=== PATIENT | female | born 1935 | race Two or more races ===

== ENCOUNTER 2016-10-25 13:16 | Emergency (ER) | payer OTHER ==
[2016-10-25 13:30] VITALS: BMI 23.4
[2016-10-25] MEDS ORDERED: ALBUTEROL SO4 2.5/IPRATROPIUM 0.5 INH SOL 3 ML VIAL.NEB. NEB ONE ×2 (13:33→14:00)
[2016-10-25 14:27] LABS: BASOPHIL 0.7 % (0-2.0); EOSINOPHIL 3.2 % (0-4.5); MCH 24.6 pg (25.7-33.7); MCHC 32.7 g/dl (32.0-36.0); MEAN CELL VOLUME 75.2 fl (80-96); MEAN PLT VOLUME 8.7 fl (7.5-11.1); NEUTROPHILS 74.6 % (42.8-82.8); PLATELET COUNT 313 K/MM3 (134-434); RDW 15.1 % (11.6-15.6); WHITE BLOOD COUNT 8.7 K/mm3 (4.0-10.8)
--- NOTE | 2016-10-25 14:43 | PDOC ---
History of Present Illness - General Chief Complaint: Shortness of Breath Stated Complaint: SOB SINCE LAST NIGHT Time Seen by Provider: 10/25/16 13:19 History Source: Patient, Family Exam Limitations: No Limitations - History of Present Illness Initial Comments: 10/25/16 14:37 81-year-old female with history of hypertension, diabetes, high cholesterol presents with shortness of breath since yesterday in the setting of URI. Patient is accompanied by her children, both in the medical profession, who report that their family has been suffering from a viral URI and the patient developed a typical symptoms beginning about 4 days ago of nasal congestion with dry throat, over the last 2 days progressed to dry cough but over the last 24 hours has had increasing chest congestion with wheezing and shortness of breath. Patient reports becoming dyspneic when climbing stairs, said she had to sleep sitting up for a few hours last night, and has had audible wheezing in her lungs. She denies any productive cough, denies any fevers or chills, denies any chest pain or pressure. Baseline bilateral leg swelling since starting amlodipine, denies any change or worsening. Unclear last echo or stress test, denies any exercise limitations preceding this upper respiratory infection. Patient states she had a similar syndrome in the past about 5 years ago, was treated with nebulizers and azithromycin and her symptoms improved. Past History - Past Medical History Allergies/Adverse Reactions: Allergies Allergy/AdvReac Type Severity Reaction Status Date / Time No Known Allergies Allergy Verified 10/25/16 13:17 Home Medications: Ambulatory Orders Albuterol Sulfate Inhaler - [Ventolin Hfa Inhaler -] 1 - 2 inh PO Q4H #1 inhaler 10/25/16 Amlodipine Besylate 10 mg PO DAILY 10/25/16 Atorvastatin Ca [Lipitor] 10 mg PO HS 10/25/16 Azithromycin [Zithromax 250mg Tablets -] 250 mg PO UTDICT #6 tab 10/25/16 Gabapentin 300 mg PO TID 10/25/16 Metformin HCl 500 mg PO BID 10/25/16 Methylprednisolone [Medrol Dose Efra] 4 mg PO ASDIR #21 tablet 10/25/16 Nebivolol HCl [Bystolic] 10 mg PO DAILY 10/25/16 Valsartan 320 mg PO DAILY 10/25/16 Diabetes: Yes HTN: Yes Hypercholesterolemia: Yes - Psycho/Social/Smoking Cessation Hx Anxiety: No Suicidal Ideation: No Smoking History: Never smoked Information on smoking cessation initiated: No Hx Alcohol Use: No Drug/Substance Use Hx: No Substance Use Type: None Review of Systems - Review of Systems Constitutional: No: Chills, Fever HEENTM: Yes: Nose Congestion, Throat Pain. No: Throat Swelling Respiratory: Yes: Cough, Shortness of Breath Cardiac (ROS): Yes: Edema. No: Chest Pain, Lightheadedness ABD/GI: No: Constipated, Diarrhea, Nausea, Vomiting Musculoskeletal: No: Joint Pain All Other Systems: Reviewed and Negative *Physical Exam - Vital Signs Last Vital Signs Temp Pulse Resp BP Pulse Ox 97.9 F 74 18 165/59 96 10/25/16 13:17 10/25/16 13:17 10/25/16 13:17 10/25/16 13:17 10/25/16 13:17 - Physical Exam Comments: 10/25/16 14:40 afebrile. Heart rate and respiratory rate are within normal limits, O2 sat 96% on room air. GENERAL: The patient is awake, alert, and fully oriented, in no acute distress. Speaking full sentences, no audible wheezing at the bedside. HEAD: Normal with no signs of trauma. EYES: PERRL, EOMI, sclera anicteric, conjunctiva clear with no pallor. ENT: oropharynx clear without exudates. Moist mucous membranes. Uvula midline, only slightly erythematous. NECK: Normal range of motion, supple without lymphadenopathy, JVD, or masses. LUNGS: Breath sounds equal, clear to auscultation bilaterally. No wheeze/ crackles to ausculation. No prolonged expiration or focally decreased breath sounds. HEART: Regular rate and rhythm, normal S1 and S2 with 2 out of 6 right upper sternal border systolic ejection murmur. No rub. ABDOMEN: Soft/nontender/nondistended. BS wnl. No guarding or rebound. No palpable masses. No hepatosplenomegaly. EXTREMITIES: Normal range of motion, 1+ pitting edema b/l. no calf ttp. 2+ distal pulses. No cords, erythema, or tenderness. NEUROLOGICAL: Cranial nerves II through XII grossly intact. Normal speech, normal gait. PSYCH: Normal mood, normal affect. SKIN: Warm, Dry, no rashes or lesions noted. Heart Score/ECG Review - History History: Slightly suspicious - Electrocardiogram EKG: Normal - Age Age: >/= 65 - Risk Factors Based on the list above the patient has:: >/=3 risk factors or Hx atherosclerotic disease - Troponin Troponin: </= normal limit - Score Heart Score - Total: 4 #1 ECG reviewed & interpreted by me at: 13:54 General ECG Interpretation: Sinus Rhythm, Normal Rate (66), Normal Intervals ( qtc 421), No acute ischemic changes ED Treatment Course - LABORATORY CBC & Chemistry Diagram: 10/25/16 14:00 10/25/16 14:00 - ADDITIONAL ORDERS Additional order review: Laboratory Results 10/25/16 14:00 Magnesium Cancelled 10/25/16 14:00 RBC 4.09 MCV 75.2 L MCHC 32.7 RDW 15.1 D MPV 8.7 D Neutrophils % 74.6 Lymphocytes % 13.3 Monocytes % 8.2 Eosinophils % 3.2 Basophils % 0.7 - RADIOLOGY Radiology Studies Ordered: Category Date Time Status CHEST PA & LAT [RAD] Stat Radiology 10/25/16 13:35 Completed - Medications Given in the ED: ED Medications Discontinued Medications Generic Name Dose Route Start Last Admin Trade Name Freq PRN Reason Stop Dose Admin Albuterol/Ipratropium 1 amp 10/25/16 13:33 10/25/16 14:00 Duoneb - NEB 10/25/16 13:34 1 amp ONCE ONE Administration Medical Decision Making - Medical Decision Making 10/25/16 14:42 81-year-old female with hypertension, diabetes, high cholesterol presents with shortness of breath/wheezing in the setting of upper respiratory infection over the last few days. Patient generally well-appearing with good vital signs, there is no audible wheezing or crackles on exam. Question progression to bronchitis, rule out pneumonia. Patient does have risk factors for ACS/CHF, but never had chest pain or exertional dyspnea preceding this illness. Check labs including troponin and BNP EKG, chest x-ray Trial of nebulizer Reassess 10/25/16 14:57 CXR notes large heart (pt states had echo in past documenting same) but no lung pathology or pneumonia. Improved after neb but still with some subjective wheeze , O2 sat 94-96% on room air. Awaiting chem/trop/bnp, ekg normal. Discussed ddx of bronchitis v. CHF with family, will reassess. 10/25/16 15:43 well appearing with improving sxs, seated in chair without respiratory distress. Trop/BNP still pending. If wnl, plan for d/c on abx and steroids for bronchitis and prompt PMD f/u. 10/25/16 15:55 trop negative. pt seated in chair, very much wants to go home. Discussed with family of clinicians choice of obs v. d/c. plan is for d/c on medrol dose pack and zpack, close monitoring of sxs/respiratory status, and prompt f/u with PMD or strict return criteria if red flags develop. 10/25/16 16:04 pharmacy closing, will give first dose of azithro and prednisone here. *DC/Admit/Observation/Transfer Diagnosis at time of Disposition: Viral upper respiratory infection, Shortness of breath - Discharge Dispostion Disposition: HOME Condition at time of disposition: Improved - Prescriptions Prescriptions: Methylprednisolone [Medrol Dose Efra] 4 mg PO ASDIR #21 tablet Albuterol Sulfate Inhaler - [Ventolin Hfa Inhaler -] 1 - 2 inh PO Q4H #1 inhaler Azithromycin [Zithromax 250mg Tablets -] 250 mg PO UTDICT #6 tab - Patient Instructions Printed Discharge Instructions: DI for Acute Bronchitis Additional Instructions: Activity as tolerated. Stay hydrated. Blood tests, an EKG, and a chest x-ray showed a large heart but no evidence of pneumonia or acute heart injury. Your symptoms are likely due to a bronchitis from a viral infection. Take azithromycin for possible atypical pneumonia ( first dose given in the ER, so take only 250mg daily for 4 days), take Medrol Dosepak as prescribed as steroid (closely monitor your sugar levels during this time), and use albuterol inhaler as needed. Continue your medications as previously prescribed by your physician. You should follow up with your primary doctor at [facility] as soon as possible (TOMORROW or WEDNESDAY) regarding today's emergency department visit. Return to the emergency department for any new or concerning symptoms, particularly any worsening shortness of breath or chest pain, any fever/chills or weakness, or any confusion.
[2016-10-25 15:17] LABS: CPK(DFH) 109 IU/L (26-140)
[2016-10-25 15:18] LABS: ALBUMIN 3.4 g/dl (3.5-5.0); ALK PHOS 150 U/L (32-92); ANION GAP 8 (8-16); BILIRUBIN,TOTAL 0.4 mg/dl (0.2-1.0); CALCIUM 9.5 mg/dl (8.4-10.2); CO2 29 mmol/L (22-28); CREATININE 0.6 mg/dl (0.6-1.3); GLUCOSE,RANDOM 197 mg/dl (74-106); MAGNESIUM 1.9 mg/dL (1.8-2.4); SGOT/AST 33 U/L (10-42); SGPT/ALT 28 U/L (10-40); TOT PROT 6.6 g/dl (6.4-8.3)
[2016-10-25 15:46] LABS: TROPONIN I (DFP) < 0.03 ng/ml (0.03-0.50)
[2016-10-25] MEDS ORDERED: AZITHROMYCIN 250 MG TABLET (FP) PO ONE (16:03)
[2016-10-25] MEDS ORDERED: predniSONE 20 MG TABLET (UD) PO ONE (16:03)
[2016-10-25] MEDS ORDERED: predniSONE 20 MG TABLET (UD) ONE (16:10)
[2016-10-25] MEDS ORDERED: AZITHROMYCIN 250 MG TABLET (FP) ONE (16:10)
[2016-10-25 16:33] VITALS: BP 146/76; PULSE 76; TEMP 98.3
--- NOTE | 2016-10-26 08:26 | EKG ---
Test Reason : Blood Pressure : / mmHG Vent. Rate : 066 BPM Atrial Rate : 066 BPM P-R Int : 126 ms QRS Dur : 072 ms QT Int : 402 ms P-R-T Axes : 033 012 015 degrees QTc Int : 421 ms NORMAL SINUS RHYTHM NORMAL ECG NO PREVIOUS ECGS AVAILABLE Confirmed by CAL BARRIENTOS MD ([id number]) on 10/26/2016 8:26:22 AM Referred By: DEVANG Confirmed By:CAL BARRIENTOS MD
== END 2016-10-25 16:33 | disposition home or self-care (01) ==
LOC: FER 13:16
PROC: 3E0F7GC Introduction of Other Therapeutic Substance into Respiratory Tract, Via Natural or Artificial Opening (ICD-10-PCS; principal; 2016-10-25)
DX: J06.9 Acute upper respiratory infection, unspecified (principal); R06.02 Shortness of breath
CPT/HCPCS: 36415; 71020-TC; 80053; 82550; 83735; 83880; 84484; 85025; 93005; 99283-25

== ENCOUNTER 2021-12-07 20:28 | Emergency (ER) | payer OTHER ==
[2021-12-07 21:05] VITALS: RESP 18
[2021-12-07] MEDS ORDERED: NOREPINEPHRINE BITARTRATE 4 MG/4 ML ML IV ONE (21:28)
[2021-12-07] MEDS ORDERED: NOREPINEPHRINE BITARTRATE 16,000 MCG in SODIUM CHLORIDE 484 ML IV SCH (21:30)
[2021-12-07 21:42] LABS: HEMATOCRIT 27.9 % (32.4-45.2); MCH 29.3 pg (25.7-33.7); MCHC 32.4 g/dl (32.0-36.0); MEAN CELL VOLUME 90.4 fl (80-96); MEAN PLT VOLUME 7.9 fl (7.5-11.1); PLATELET COUNT 146.1 10^3/uL (134-434); RBC 3.09 10^6/uL (3.60-5.2); RDW 14.7 % (11.6-15.6); WHITE BLOOD COUNT 8.8 10^3/uL (4.0-10.8)
[2021-12-07 21:46] LABS: ALBUMIN 2.7 g/dl (3.4-5.0); BILIRUBIN,TOTAL 0.8 mg/dl (0.2-1); CALCIUM 8.3 mg/dl (8.5-10); CREATININE 1.7 mg/dl (0.55-1.3); TOT PROT 5.9 g/dl (6.4-8.2)
[2021-12-07 21:51] VITALS: BMI 23.1
[2021-12-07 22:17] VITALS: TEMP 97
[2021-12-07 22:54] VITALS: PULSE 50
[2021-12-07 23:02] VITALS: BP 83/41
[2021-12-08 00:01] LABS: INR 1.1 (0.83-1.09); PROTHROMBIN TIME (PATIENT) 12.7 SEC (9.7-13.0)
== END 2021-12-07 22:42 | disposition short-term general hospital (02) ==
LOC: FER 20:28
PROC: 3E033GC Introduction of Other Therapeutic Substance into Peripheral Vein, Percutaneous Approach (ICD-10-PCS; principal; 2021-12-07)
DX: I46.9 Cardiac arrest, cause unspecified (principal)
CPT/HCPCS: 36415; 71045-TC-FY; 80053; 82550; 83605; 83880; 84484; 85025; 85610; 93005; 99291; C9803-CS; U0003; U0005